=== PATIENT | female | born 1980 | race Caucasian/White ===

== ENCOUNTER 2023-05-08 10:03 | Day surgery (SDC) | payer BC ==
[2023-05-04 15:19] VITALS: BMI 32.3
[2023-05-08 13:23] VITALS: PULSE 91
[2023-05-08 13:24] VITALS: BP 110/76; RESP 16
[2023-05-08 13:25] VITALS: TEMP 97.1
== END 2023-05-08 13:25 | disposition home or self-care (01) ==
LOC: JASU-ENDO 10:03
PROVIDERS: ATTEND Internal Medicine Gastroenterology
PROC: 0DBL8ZX Excision of Transverse Colon, Via Natural or Artificial Opening Endoscopic, Diagnostic (ICD-10-PCS; 2023-05-08)
PROC: 0DBP8ZX Excision of Rectum, Via Natural or Artificial Opening Endoscopic, Diagnostic (ICD-10-PCS; 2023-05-08)
PROC: 0DBM8ZX Excision of Descending Colon, Via Natural or Artificial Opening Endoscopic, Diagnostic (ICD-10-PCS; 2023-05-08)
PROC: 0DBK8ZX Excision of Ascending Colon, Via Natural or Artificial Opening Endoscopic, Diagnostic (ICD-10-PCS; principal; 2023-05-08 12:34)
DX: K52.9 Noninfective gastroenteritis and colitis, unspecified (principal); K64.1 Second degree hemorrhoids; D64.9 Anemia, unspecified
CPT/HCPCS: 81025; 82962; 88305-TC

== ENCOUNTER 2023-07-24 10:42 | Day surgery (SDC) | payer BC ==
[2023-06-17 16:17] VITALS: BMI 32.3
[2023-07-24 11:29] VITALS: RESP 16
[2023-07-24 13:24] VITALS: PULSE 95; TEMP 97.7
[2023-07-24 13:28] VITALS: BP 98/60
== END 2023-07-24 13:37 | disposition home or self-care (01) ==
LOC: FASU-ENDO 10:42
PROVIDERS: ATTEND Internal Medicine Gastroenterology
PROC: 0DB68ZX Excision of Stomach, Via Natural or Artificial Opening Endoscopic, Diagnostic (ICD-10-PCS; 2023-07-24)
PROC: 0DB48ZX Excision of Esophagogastric Junction, Via Natural or Artificial Opening Endoscopic, Diagnostic (ICD-10-PCS; 2023-07-24)
PROC: 0DB98ZX Excision of Duodenum, Via Natural or Artificial Opening Endoscopic, Diagnostic (ICD-10-PCS; principal; 2023-07-24 12:50)
DX: K29.50 Unspecified chronic gastritis without bleeding (principal); K21.00 Gastro-esophageal reflux disease with esophagitis, without bleeding; R10.13 Epigastric pain
CPT/HCPCS: 81025; 82962; 88305-TC; 88342-TC